=== PATIENT | female | born 1980 | race African-American/Black ===

== ENCOUNTER 2024-06-14 18:53 | Emergency (ER) | payer OTHER, MEDICAID ==
[~2024-06-14] VITALS: Ht 182.9 cm; Wt 113.6 kg
[~2024-06-14 18:53] MED LIST: AMLO1TAB23 PO
--- NOTE | 2024-06-14 19:03 | ED.PDOC ---
HPI (NEURO) HPI Comments 43 y.o female with PMHx of HTN, presents to the ED via EMS for a chief complaint of a headache that started this morning. Patient describes pain as sharp, constant, localized to the frontal region, is non radiating and rating a 10/10 on the pain scale. Patient mentions now feeling nauseous and numbness to her mouth. EMS reports on scene, patient's blood pressure read 202/104 with a repeat read of 167/117 upon ED arrival. Patient is non compliant with HTN medication and is unsure what type of medication she was placed on for it. She denies any chest pain, dizziness, SOB, vomiting, recent head injuries, or syncopal episodes. Time Seen by MD: 18:55 Reviewed Notes: Nurses Notes, Manager Inventory Control Notes, Medications, Allergies Information Source: Patient, Emergency Med Personnel Mode of Arrival: EMS Severity: Moderate Headache Severity: Worst Headache of life Timing: Hours Duration: Since onset Headache Quality: Sharp Headache Location: Frontal Onset: At rest Circumstances: Spontaneous Symptoms: None History of: Hypertension Modifying factors: Nothing Associated Signs and Symptoms: Headache, Nausea Past Medical History PAST MEDICAL HISTORY: HTN Surgical History: Denies all surgeries MACHINE CLERICAL VERIFIER History: No Pertinent MACHINE CLERICAL VERIFIER History Family History Family History: Reviewed,noncontributory to illness Social History Smoker: Non-Smoker Alcohol: Denies ETOH Use Drugs: Denies Drug Use Lives In: Home Constitutional: denies: chills, diaphoresis, fatigue, fever, malaise, sweats, weakness, others EENTM: denies: blurred vision, double vision, ear bleeding, ear discharge, ear drainage, ear pain, ear ringing, eye pain, eye redness, hearing loss, mouth pain, mouth swelling, nasal discharge, nose bleeding, nose congestion, nose pain, photophobia, tearing, throat pain, throat swelling, voice changes, others Respiratory: denies: cough, hemoptysis, orthopnea, SOB at rest, shortness of breath, SOB with excertion, stridor, wheezing, others Cardiovascular: denies: chest pain, dizzy spells, diaphoresis, Dyspnea on exertion, edema, irregular heart beat, left arm pain, lightheadedness, palpitations, PND, syncope, others Gastrointestinal: reports: nausea; denies: abdomen distended, abdominal pain, blood streaked bowels, constipated, diarrhea, dysphagia, difficulty swallowing, hematemesis, melena, poor appetite, poor fluid intake, rectal bleeding, rectal pain, vomiting, others Genitourinary: denies: abnormal vagina bleeding, burning, dyspareunia, dysuria, flank pain, frequency, hematuria, incontinence, pain, , vagina discharge, urgency, others Neurological: reports: headache; denies: dizziness, fainting, left sided numbness, left sided weakness, numbness, paresthesia, pre-existing deficit, right sided numbness, right sided weakness, seizure, speech problems, tingling, tremors, weakness, others Musculoskeletal: denies: back pain, gout, joint pain, joint swelling, muscle pain, muscle stiffness, neck pain, others Integumetry: denies: bruises, change in color, change in hair/nails, dryness, laceration, lesions, lumps, rash, wounds, others Allergic/Immunocompromised: denies: Difficulty Healing, Frequent Infections, Hives, Itching, others Hematologic/Lymphatic: denies: anemia, blood clots, easy bleeding, easy bruising, swollen glands, others Endocrine: denies: excessive hunger, excessive sweating, excessive thirst, excessive urination, flushing, intolerance to cold, intolerance to heat, unexplained weight gain, unexplained weight loss, others Psychiatric: denies: anxiety, bipolar disorder, depression, hopeless, panic disorder, schizophrenia, sleepless, suicidal, others All Other Systems: Reviewed and Negative Physical Exam General Appearance: Mild Distress HEENT: Normal ENT Inspection, Pharynx Normal, TMs Normal Neck: Full Range of Motion, Non-Tender, Normal, Normal Inspection Respiratory: Chest Non-Tender, Lungs Clear, No Accessory Muscle Use, No Respiratory Distress, Normal Breath Sounds Cardiovascular: No Edema, No JVD, No Murmur, No Gallop, Normal Peripheral Pulses, Regular Rate/Rhythm Breast Exam: Deferred Gastrointestinal: No Organomegaly, Non Tender, No Pulsatile Mass, Normal Bowel Sounds, Soft Genitalia: Deferred Pelvic: Deferred Rectal: Deferred Extremities: No calf tenderness, Normal capillary refill, Normal inspection, Normal range of motion, Non-tender, No pedal edema Musculoskeletal : Apperance: Normal Neurologic: Alert, sports marketing internship II-XII nml as Tested, No Motor Deficits, Normal Affect, Normal Mood, No Sensory Deficits Cerebellar Function: Normal Reflexes: Normal Skin: Dry, Normal Color, Warm Lymphatic: No Adenopathy EKG EKG : Pulse Rate (adult): 67 Cardiac Rhythm: NSR Was a procedure done? Was a procedure done?: No Differential Diagnosis (SZ) Seizure: N/A Headache: Cluster, Migraine, CVA, Subarachnoid Hemorrhage, Post-Traumatic, Sinusitis, Other (Hypertensive crisis, medication non compliance ) X-Ray, Labs, Meds, VS Vital Signs Date Time Temp Pulse Resp B/P (MAP) Pulse Ox O2 Delivery O2 Flow Rate FiO2 06/14/24 20:50 168/100 06/14/24 19:16 98.4 70 22 167/110 (129) 100 98.4 06/14/24 19:05 67 06/14/24 19:03 67 Lab Test 06/14/24 19:19 Range/Units White Blood Count 2.7 L 4.4-10.8 10^3/uL Red Blood Count 3.80 L 4.0-5.20 10^6/uL Hemoglobin 12.8 12.2-16.2 g/dL Hematocrit 37.3 36.0-46.0 % Mean Corpuscular Volume 98.2 80.0-100.0 fL Mean Corpuscular Hemoglobin 33.7 H 28.0-32.0 pg Mean Corpuscular Hemoglobin Concent 34.4 32.0-36.0 g/dL Red Cell Distribution Width 13.0 11.8-14.3 % Platelet Count 192 140-450 10^3/uL Mean Platelet Volume 7.6 6.9-10.8 fL Neutrophils (%) (Auto) 42.0 37.0-80.0 % Lymphocytes (%) (Auto) 44.0 10.0-50.0 % Monocytes (%) (Auto) 12.0 0.0-12.0 % Eosinophils (%) (Auto) 1.3 0.0-7.0 % Basophils (%) (Auto) 0.7 0.0-2.0 % Neutrophils # (Auto) 1.1 L 1.6-8.6 10 ^3/uL Lymphocytes # (Auto) 1.2 0.4-5.4 10 ^3/uL Monocytes # (Auto) 0.3 0-1.3 10 ^3/uL Eosinophils # (Auto) 0 0-0.8 10 ^3/uL Basophils # (Auto) 0 0-0.2 10 ^3/uL Nucleated Red Blood Cells 0.3 % Sodium Level 141 136-145 mmol/L Potassium Level 3.4 L 3.5-5.1 mmol/L Chloride Level 110 H 98-107 mmol/L Carbon Dioxide Level 28 20-31 mmol/L Anion Gap 3 L 5-15 Blood Urea Nitrogen 19 9-23 mg/dL Creatinine 1.07 H 0.550-1.02 mg/dL Glomerular Filtration Rate Calc 66 >90 mL/min BUN/Creatinine Ratio 17.8 10.0-20.0 Serum Glucose 104 74-106 mg/dL Calcium Level 9.2 8.7-10.4 mg/dL Current Medications Medications (Trade) Dose Ordered Sig/Shahnaz Route Start Time Stop Time Status Last Admin Clonidine HCl (Catapres Tablet) 0.2 mg ONCE ONCE PO 06/14/24 19:00 06/14/24 19:01 DC 06/14/24 20:50 CBC shows leukopenia at 2.7 The rest of the CBC is within normal limits The chemistry panel shows a creatinine of 1.07 The patient was given clonidine 0.2 mg by mouth We are going to discharge the patient on losartan The CAT scan of the head is negative The patient will follow up with her primary care doctor which is Armando. We did give them a call and at this time the patient will follow up with them. The authorization #[id number] Images Reviewed?: Images reviewed and evaluated by me Time of 1ST Reevaluation: 18:59 Reevaluation 1ST: Unchanged Consultation: Other Patient Education/Counseling: Diagnosis, Treatment, Prognosis, Need For Follow Up Family Education/Counseling: No Family Present Departure 1 Departure Time of Disposition: 21:28 Impression: Primary Impression: Hypertensive urgency Additional Impression: Cephalgia Qualified Codes: G44.209 - Tension-type headache, unspecified, not intractable Disposition: HOME / SELF CARE / HOMELESS Condition: Fair Discharged With: Self Critical Care Note Critical Care Time?: No Stability Stability form required: No I personally scribed for SUKHDEEP YOUNGER MD ([email or web address]) on 06/14/24 at 19:03. Electronically submitted by Madelaine Man ([facility]). I personally scribed for SUKHDEEP YOUNGER MD ([email or web address]) on 06/14/24 at 19:05. Electronically submitted by Madelaine Man ([facility]). SUKHDEEP YOUNGER MD Jun 14, 2024 19:03
--- NOTE | 2024-06-14 19:05 | ECG ---
[facility] Test Date: 2024-06-14 Test Time: 19:03:13 Pat Name: ELLEN CAMPBELL Department: ED Room: Gender: F Manager Corporate Marketing: arin : 1980 Requested By: SUKHDEEP YOUNGER Order Number: [id number] Reading MD: Lukasz Queen Measurements Intervals [place] Rate: 67 P: -16 [place]: 149 QRS: 38 QRSD: 99 T: 46 QT: 410 QTc: 433 Interpretive Statements Sinus rhythm ST elev, probable normal early repol pattern Electronically Signed On 06-14-2024 20:40:15 PDT by Lukasz Queen Please click the below link to view image of tracing.
[2024-06-14 19:34] LABS: Basophils # (auto) 0 10 ^3/uL (0-0.2); Basophils % (auto) 0.7 % (0.0-2.0); Eosinophils # (auto) 0 10 ^3/uL (0-0.8); Eosinophils % (auto) 1.3 % (0.0-7.0); Hematocrit 37.3 % (36.0-46.0); Hemoglobin 12.8 g/dL (12.2-16.2); Lymphocytes # (auto) 1.2 10 ^3/uL (0.4-5.4); Mean Corpuscular Hemoglobin 33.7 pg (28.0-32.0); Mean Corpuscular Hgb Conc. 34.4 g/dL (32.0-36.0); Mean Corpuscular Volume 98.2 fL (80.0-100.0); Monocytes # (auto) 0.3 10 ^3/uL (0-1.3); Neutrophils # (auto) 1.1 10 ^3/uL (1.6-8.6); Nucleated Red Blood Cells % 0.3 %; Platelet Count (auto) 192 10^3/uL (140-450); White Blood Cell 2.7 10^3/uL (4.4-10.8)
[2024-06-14 19:40] LABS: Sodium 141 mmol/L (136-145)
[2024-06-14 19:41] LABS: Anion Gap 3 (5-15); Calcium 9.2 mg/dL (8.7-10.4); Carbon Dioxide 28 mmol/L (20-31)
[2024-06-14 19:45] LABS: Chloride 110 mmol/L (98-107); Potassium 3.4 mmol/L (3.5-5.1)
[2024-06-14 19:46] LABS: BUN/Creatinine Ratio 17.8 (10.0-20.0); Blood Urea Nitrogen 19 mg/dL (9-23); Glucose 104 mg/dL (74-106)
[2024-06-14 20:50] VITALS: TEMP 98
[2024-06-14] MEDS: cloNIDine HCL 0.1 MG TAB PO ONE (20:50)
--- NOTE | 2024-06-14 20:50 | DVH ---
EXAM: CT HEAD WITHOUT CONTRAST INDICATION: ALMONTE TECHNIQUE: CT of the head without intravenous contrast. Radiation Dose Information: CT Dose: CTDI volume is 60.55 mGy. Dose-length product is 970.52 mGy*cm The dose indicators for CT are the volume Computed Tomography (CT) Dose Index (CTDIvol) and the Dose Length Product (DLP), and are measured in units of mGy and mGy-cm, respectively. These indicators are not patient dose, but values generated from the CT scanner acquisition factors. The report includes radiation exposure data for exposures received during this examination. COMPARISON: CT HEAD WITHOUT CONTRAST on DOS: 05/30/23 FINDINGS: There is no evidence of acute intracranial hemorrhage, extra-axial collection, mass effect, midline s hift, herniation or hydrocephalus. The ventricles, sulci and cisterns are age appropriate. The doshi-white differentiation is intact. Patchy periventricular and subcortical white matter hypoattenuation is nonspecific but may be related to small vessel ischemic disease. Mucosal thickening in the left maxillary sinuse and mastoid air cells are clear. The surrounding soft tissues and osseous structures are unremarkable. IMPRESSION: 1. No acute intracranial hemorrhage 2. No CT findings of territorial ischemia 3. No CT findings of paranasal sinus or mastoid disease. HS:Y
[2024-06-14] MEDS ORDERED: LOSA100T33 PO (21:31)
[2024-06-14 21:50] VITALS: BP 142/90
[2024-06-14 21:58] VITALS: PULSE 74; RESP 16; O2SAT 100
== END 2024-06-14 21:59 | disposition home or self-care (01) ==
LOC: EDBD 18:53 → ER 18:59
DX: I16.0 Hypertensive urgency (principal); I10 Essential (primary) hypertension; R51.9 Headache, unspecified; R20.0 Anesthesia of skin; R11.0 Nausea
CPT/HCPCS: 36415; 70450; 80048; 85025; 93005